=== PATIENT | female | born 1980 | race Hispanic/Latino ===

== ENCOUNTER 2017-10-12 17:37 | Emergency (ER) | payer SELFPAY ==
[2017-10-12 18:27] LABS: Bilirubin Negative (Negative); Blood, Urine Large (Negative); Clarity CLOUDY (Clear); Glucose, Urine (Dipstick) Negative (Negative); Leukocyte Large (Negative); Nitrite Negative (Negative); Protein, Urine (Dipstick) Trace mg/dL (Neg-Trace); Specific Gravity, Urine 1.015 (1.002-1.036)
[2017-10-12 18:28] LABS: Pregnancy Test - Urine (BHCG) Negative (Negative); Pregu Control Background? CLEAR/WHITE (CLR/WHITE); Pregu Control Bar Appear? YES (CONTROL BAR); Specific Gravity 1.016 (1.002-1.036)
[2017-10-12 18:39] LABS: Bacteria/HPF 1+ HPF (None Seen); Hyaline Casts/LPF 0-3 HYALINE CAST LPF (0-3 Hyaline); Pathc Cast-AUWi Flag 0.27 (0-2.49); RBC/HPF 21-50 HPF (0-3); Squamous Epithelial 0-3 HPF (0-3)
[2017-10-12 18:43] LABS: Yeast-AUWi Flag 66.6 (0-25.0)
[2017-10-12 18:53] LABS: Yeast-All Forms None Seen HPF (None Seen)
[2017-10-12] MEDS ORDERED: Phenazopyridine HCl 97.5 MG TABLET ONE (18:55)
[2017-10-12] MEDS ORDERED: Cephalexin 250 MG CAP ONE (18:55)
--- NOTE | 2017-10-12 19:19 | RAD ---
TWO VIEWS CHEST: Date: 10-12-17 Comparison: 01-29-12 History: Chest pain. FINDINGS: No pneumothorax or pleural fluid. No focal consolidation or alveolar edema. Heart and mediastinal con tours are within normal limits. Clips in the right upper quadrant suggests prior cholecystectomy. IMPRESSION: No acute findings. POS: [facility]
== END 2017-10-12 19:55 | disposition home or self-care (01) ==
LOC: ERS 17:37
DX: R07.89 Other chest pain (principal); T39.1X5A Adverse effect of 4-Aminophenol derivatives, initial encounter; N39.0 Urinary tract infection, site not specified; F41.9 Anxiety disorder, unspecified; F32.9 Major depressive disorder, single episode, unspecified
CPT/HCPCS: 71046; 81003; 81015; 81025; 93005

== ENCOUNTER 2017-12-24 12:32 | Emergency (ER) | payer MEDICAID, SELFPAY ==
[2017-12-24 13:05] LABS: #Eosinphils 0.1 thou/uL (0.0-0.7); #Lymphocytes 1.5 thou/uL (1.20-3.40); #Monocytes 0.4 thou/uL (0.11-0.59); #Neutrophils 4.5 thou/uL (1.40-6.50); %Basophils 0.6 % (0.0-1.0); %Eosinophils 1.1 % (0.0-10.0); %Lymphocytes 22.3 % (21.0-51.0); %Monocytes 6.8 % (0.0-10.0); %Neutrophils 69.2 % (42.0-75.0); Hemoglobin 12.4 g/dL (12.0-16.0); Mean Corpuscular HGB CONC 33.1 g/dL (32.0-36.0); Mean Corpuscular Hemoglobin 29.8 pg (27.0-31.0); Mean Corpuscular Volume 90.1 fl (81.0-99.0); Mean Platelet Volume 6.2 fL (7.4-10.4); Platelet Count 362 thou/uL (130-400); RBC Distribution Width 12.8 % (11.5-14.5); Red Blood Cell (RBC) Count 4.17 mill/uL (4.20-5.40); White Blood Cell (WBC) Count 6.5 thou/uL (4.8-10.8)
[2017-12-24 13:27] LABS: ALT (SGPT) 24 U/L (8-55); AST (SGOT) 25 U/L (5-34); Albumin 3.7 g/dL (3.5-5.0); Alkaline Phosphatase 60 U/L (40-150); Anion Gap 7 mmol/L (10-20); BUN (Urea Nitrogen) 6 mg/dL (7.0-18.7); Bilirubin, Total 0.6 mg/dL (0.2-1.2); Calc. Creatinine Clearance 0 mL/min (70-130); Calcium 8.7 mg/dL (7.8-10.44); Carbon Dioxide 23 mmol/L (22-29); Chloride 107 mmol/L (98-107); Estimated GFR-MDRD Greater than 90; Globulin 2.8 g/dL (2.4-3.5); Glucose 88 mg/dL (70-105); Potassium 3.6 mmol/L (3.5-5.1); Protein, Total 6.5 g/dL (6.0-8.3); Sodium 133 mmol/L (136-145)
[2017-12-24 13:39] LABS: Bilirubin Negative (Negative); Blood, Urine Trace (Negative); Clarity CLEAR (Clear); Glucose, Urine (Dipstick) Negative (Negative); Leukocyte Negative (Negative); Nitrite Negative (Negative); Protein, Urine (Dipstick) Negative (Neg-Trace); Specific Gravity, Urine 1.022 (1.002-1.036); pH, Urine 6.5 (5.0-9.0)
[2017-12-24 13:45] LABS: Bacteria/HPF None Seen HPF (None Seen); Hyaline Casts/LPF 4-6 HYALINE CAST LPF (0-3 Hyaline); Pathc Cast-AUWi Flag 1.01 (0-2.49); RBC/HPF 0-3 HPF (0-3); WBC/HPF 0-3 HPF (0-3)
--- NOTE | 2017-12-24 14:08 | ULT ---
OBSTETRIC SONOGRAM FIRST TRIMESTER TRANSABDOMINAL AND TRANSVAGINAL IMAGING: Date: 12/24/17 HISTORY: Pelvic pain. Bleeding. Early . Absent heart tones. FINDINGS: Gestational sac within the endometrial cavity contains a yolk sac and pole. Offerle-rump length c orrelates with 8 weeks/3 days gestational size. No heart motion is demonstrated upon sonography . No free fluid within the pelvis. Good color and spectral Doppler flow are associated with each ovary. IMPRESSION: Intrauterine demise. POS: [facility]
== END 2017-12-24 15:27 | disposition home or self-care (01) ==
LOC: ERS 12:32
DX: O02.1 Missed abortion (principal); F41.9 Anxiety disorder, unspecified; F32.9 Major depressive disorder, single episode, unspecified
CPT/HCPCS: 36415; 76856; 80053; 81003; 81015; 84702; 85025; 86900; 86901

== ENCOUNTER 2018-03-17 08:26 | Outpatient (CLI) | payer OTHER | END 2018-03-17 08:27 | disposition home or self-care (01) | LOC: BICULT 08:26 | PROVIDERS: ATTEND Nurse Practitioner | DX: N93.9 Abnormal uterine and vaginal bleeding, unspecified (principal) | CPT/HCPCS: 76856 ==

== ENCOUNTER 2018-05-03 21:35 | Emergency (ER) | payer OTHER ==
[2018-05-03] MEDS ORDERED: Ketorolac Tromethamine 60 MG/2 ML VIAL ONE (22:17)
[2018-05-03 22:20] LABS: Bilirubin Negative (Negative); Blood, Urine Large (Negative); Clarity CLOUDY (Clear); Glucose, Urine (Dipstick) Negative (Negative); Leukocyte Moderate (Negative); Nitrite Negative (Negative); Protein, Urine (Dipstick) 100 mg/dL (Neg-Trace); pH, Urine 6.5 (5.0-9.0)
[2018-05-03 22:22] LABS: Bacteria/HPF 4+ HPF (None Seen); Hyaline Casts/LPF 0-3 HYALINE CAST LPF (0-3 Hyaline); Pathc Cast-AUWi Flag 0.72 (0-2.49); Pregnancy Test - Urine (BHCG) Negative (Negative); Pregu Control Background? CLEAR/WHITE (CLR/WHITE); Pregu Control Bar Appear? YES (CONTROL BAR); RBC/HPF GREATER THAN 50-TNTC HPF (0-3); Squamous Epithelial 0-3 HPF (0-3)
[2018-05-03] MEDS ORDERED: Phenazopyridine HCl 97.5 MG TABLET PO SCH (22:30)
== END 2018-05-03 23:26 | disposition home or self-care (01) ==
LOC: ERS 21:35
DX: N39.0 Urinary tract infection, site not specified (principal); F41.9 Anxiety disorder, unspecified; F32.9 Major depressive disorder, single episode, unspecified
CPT/HCPCS: 81003; 81015; 81025; 87077; 87086; 87186; 96372; J1885

== ENCOUNTER 2018-05-31 16:32 | Emergency (ER) | payer OTHER | END 2018-05-31 16:50 | disposition home or self-care (01) | LOC: ERS 16:32 | DX: K02.9 Dental caries, unspecified (principal) | CPT/HCPCS: 99282 ==

== ENCOUNTER 2018-11-03 16:41 | Emergency (ER) | payer OTHER ==
[2018-11-03 17:08] LABS: #Eosinphils 0.1 thou/uL (0.0-0.7); #Lymphocytes 1.7 thou/uL (1.20-3.40); #Monocytes 0.6 thou/uL (0.11-0.59); #Neutrophils 5.4 thou/uL (1.40-6.50); %Basophils 0.5 % (0.0-1.0); %Eosinophils 1.2 % (0.0-10.0); %Lymphocytes 21.2 % (21.0-51.0); %Monocytes 7.9 % (0.0-10.0); %Neutrophils 69.3 % (42.0-75.0); Hemoglobin 10.3 g/dL (12.0-16.0); Mean Corpuscular HGB CONC 32.2 g/dL (32.0-36.0); Mean Corpuscular Hemoglobin 27.8 pg (27.0-31.0); Mean Corpuscular Volume 86.4 fL (78.0-98.0); Mean Platelet Volume 6.4 fL (7.4-10.4); Platelet Count 375 thou/uL (130-400); RBC Distribution Width 13.6 % (11.5-14.5); Red Blood Cell (RBC) Count 3.72 mill/uL (4.20-5.40); White Blood Cell (WBC) Count 7.8 thou/uL (4.8-10.8)
[2018-11-03 17:25] LABS: ALT (SGPT) 9 U/L (8-55); AST (SGOT) 13 U/L (5-34); Albumin 3.6 g/dL (3.5-5.0); Alkaline Phosphatase 61 U/L (40-150); Anion Gap 11 mmol/L (10-20); BUN (Urea Nitrogen) 8 mg/dL (7.0-18.7); Bilirubin, Total Less than 0.2 mg/dL (0.2-1.2); Calc. Creatinine Clearance 0 mL/min (70-130); Calcium 8.8 mg/dL (7.8-10.44); Carbon Dioxide 24 mmol/L (22-29); Chloride 105 mmol/L (98-107); Estimated GFR-MDRD Greater than 90; Globulin 3.2 g/dL (2.4-3.5); Glucose 84 mg/dL (70-105); Lipase 20 U/L (8-78); Potassium 3.8 mmol/L (3.5-5.1); Protein, Total 6.8 g/dL (6.0-8.3); Sodium 136 mmol/L (136-145)
[2018-11-03 18:03] LABS: Bilirubin Negative (Negative); Blood, Urine Negative (Negative); Clarity CLEAR (Clear); Glucose, Urine (Dipstick) Negative (Negative); Leukocyte Negative (Negative); Nitrite Negative (Negative); Protein, Urine (Dipstick) Negative (Neg-Trace); Specific Gravity, Urine 1.007 (1.002-1.036); Urobilinogen 0.2 mg/dL (0.2-1.0); pH, Urine 6.5 (5.0-9.0)
--- NOTE | 2018-11-03 20:42 | ULT ---
OB ULTRASOUND: 11/03/2018 HISTORY: Pelvic pressure sensation. History of prior miscarriage. FINDINGS: Multiple transabdominal images of the pelvis are obtained. There is evidence of a single intrauterin e gestation, in variable presentation. Cardiac Doppler demonstrates heart tones with a h eart rate of 163 beats per minute. There is a normal amount of amniotic fluid. The placenta is loca jean anteriorly. Cervical length is difficult to accurately measure but, on transabdominal imaging, m easures approximately 3.7 cm. There is small, hypoechoic, slightly heterogeneous area seen adjacent to the distal portion of the ge stational sac, measuring 1.9 cm x 1.2 cm x 1.3 cm. Color-flow evaluation does not demonstrate flow i n this region. This could be related to sequela of a subchorionic hemorrhage. MEASUREMENTS: Biparietal diameter: 1.99 cm (13 weeks 1 day). Head circumference: 8.11 cm (13 weeks 3 days). Abdominal circumference: 6.58 cm (13 weeks 2 days). Femur length: 0.71 cm (12 weeks 1 day). The estimated gestational age by ultrasound is 13 weeks with an CHASITY of 05/11/2019. The gestational a ge by the last menstrual period is 12 weeks. IMPRESSION: 1. Heterogeneous and slightly cystic appearing area within the lower uterine segment, adjacent to th e gestational sac, which could be sequela of subchorionic hemorrhage. This measures 1.[address] dimensions. Continued followup is recommended. 2. Single intrauterine gestation, in variable presentation, with heart tones documented. 3. Estimated gestational age by ultrasound is 13 weeks with an estimated date of delivery of 019. POS: [facility]
== END 2018-11-03 19:32 | disposition home or self-care (01) ==
LOC: ERS 16:41
DX: O99.89 Other specified diseases and conditions complicating pregnancy, childbirth and the puerperium (principal); R10.11 Right upper quadrant pain; R10.30 Lower abdominal pain, unspecified; O99.341 Other mental disorders complicating pregnancy, first trimester; F41.9 Anxiety disorder, unspecified; F32.9 Major depressive disorder, single episode, unspecified; Z3A.12 12 weeks gestation of pregnancy
CPT/HCPCS: 36415; 76805; 80053; 81003; 83690; 84702; 85025; 86900; 86901; 99284

== ENCOUNTER 2019-01-06 12:52 | Outpatient (CLI) | payer MEDICAID ==
--- NOTE | 2019-01-06 13:53 | ULT ---
EXAM: OB ultrasound COMPARISON: None HISTORY: female. Evaluate size, dates, and anatomy. TECHNIQUE: Multiplanar grayscale and color Doppler images were obtained in a transabdominal ult rasound. FINDINGS: There is a single live intrauterine with heart rate of 153 bpm. A survey wa s performed which is unremarkable. The head, intracranial structures, heart, stomach, kidneys, umbilical cord, umbilical cord insertion, spine, face, and extremities were evaluated and were unrema rkable. Estimated weight is 451 g. Average age of the fetus based off today's examination is 21 weeks 5 days. BPD 5.14 cm -- 21 weeks 4 days HC 18.93 cm -- 21 weeks 2 days AC 16.60 cm -- 21 weeks 4 days FL 3.80 cm -- 22 weeks 1 day The placenta is anterior in location without focal abnormality. MINE is 12.9 cm which is normal. Ther e is no evidence of placenta previa. IMPRESSION: Single live intrauterine with estimated age of 21 weeks 5 days.
== END 2019-01-06 12:53 | disposition home or self-care (01) ==
LOC: ULT 12:52
PROVIDERS: ATTEND Nurse Practitioner
DX: O09.92 Supervision of high risk pregnancy, unspecified, second trimester (principal); Z3A.21 21 weeks gestation of pregnancy
CPT/HCPCS: 76805

== ENCOUNTER 2019-05-10 05:30 | Inpatient (IN) | payer OTHER ==
[2019-05-10 06:56] VITALS: BMI 34.2
[2019-05-10] MEDS ORDERED: hydrALAZINE 20 MG/ML VIAL SLOW IVP PRN ×2 (06:57→18:36)
[2019-05-10] MEDS ORDERED: Methylergonovine 0.2 MG/ML VIAL IM PRN (06:57)
[2019-05-10] MEDS ORDERED: Ibuprofen 800 MG TAB PO PRN (06:57)
[2019-05-10] MEDS ORDERED: Carboprost 250 MCG/ML AMP IM PRN (06:57)
[2019-05-10] MEDS ORDERED: HYDROcodone/Acetaminophen 5/325 mg Tablet PO PRN ×3 (06:57→18:36)
[2019-05-10] MEDS ORDERED: Promethazine HCl 25 MG/ML VIAL IM PRN ×2 (06:57→18:36)
[2019-05-10] MEDS ORDERED: Ondansetron PF 4 MG/2 ML Vial IVP PRN ×2 (06:57→18:36)
[2019-05-10] MEDS ORDERED: Diphenoxylate HCl/Atropine Tablet PO PRN (06:57)
[2019-05-10] MEDS ORDERED: Misoprostol 200 MCG TAB PR PRN (06:57)
[2019-05-10] MEDS ORDERED: Lidocaine 1% (PF) 30 ML VIAL SC PRN (06:57)
[2019-05-10] MEDS ORDERED: NS w/ Oxytocin 10 units 500 ML IV SCH ×2 (07:00)
[2019-05-10] MEDS: Lactated Ringer's 1,000 ML IV SCH ×2 (07:15→13:42)
[2019-05-10] MEDS ORDERED: NS w/ Oxytocin 10 units 500 ML ONE (07:21)
[2019-05-10 08:06] LABS: Hemoglobin 9.7 g/dL (12.0-16.0); Mean Corpuscular Hemoglobin 25.5 pg (27.0-31.0); Mean Corpuscular Volume 79.8 fL (78.0-98.0); Mean Platelet Volume 7.6 fL (7.4-10.4); Platelet Count 340 thou/uL (130-400); RBC Distribution Width 15.8 % (11.5-14.5); White Blood Cell (WBC) Count 7.5 thou/uL (4.8-10.8)
[2019-05-10 08:44] LABS: HBSAg Index 0.13 S/CO (0-0.99); Hep B Surf Ag Non-Reactive S/CO (NonReactive); Syphilis Antibody Nonreactive (Nonreactive); Syphilis Antibody Index 0.04 S/CO (<1.00 Non-Reactive)
[2019-05-10] MEDS: Butorphanol Tartrate 1 MG/ML VIAL SLOW IVP PRN ×3 (11:38→14:40)
[2019-05-10] MEDS ORDERED: Misoprostol 200 MCG TAB ONE (14:48)
[2019-05-10] MEDS: NS / Oxytocin 40 units/1000ml 1,000 ML IV PRN ×2 (15:10→16:44)
[2019-05-10] MEDS ORDERED: Lanolin Ointment 7 GM TUBE TOP PRN (18:36)
[2019-05-10] MEDS ORDERED: Milk Of Magnesia 30 ML UDCUP PO PRN (18:36)
[2019-05-10] MEDS ORDERED: Bisacodyl 10 MG SUPP PR PRN (18:36)
[2019-05-10] MEDS ORDERED: Preparation H Ointment 28 GM TUBE PR PRN (18:36)
[2019-05-10] MEDS ORDERED: NS / Oxytocin 40 units/1000ml 1,000 ML IV SCH (18:36)
[2019-05-10] MEDS ORDERED: diphenhydrAMINE 25 MG CAP PO PRN (18:36)
[2019-05-10] MEDS ORDERED: Adacel (T-DAP) 0.5 ML SYRINGE IM ONE (18:36)
[2019-05-10] MEDS: Ferrous Sulfate 325 MG TAB PO SCH (21:37)
[2019-05-10] MEDS: Ibuprofen 800 MG TAB PO SCH (21:37)
[2019-05-10] MEDS: Docusate Calcium (SURFAK) 240 MG CAP PO SCH (21:38)
[2019-05-11] MEDS: Ibuprofen 800 MG TAB PO SCH ×3 (05:07→16:28)
[2019-05-11 06:27] LABS: Hemoglobin 8.9 g/dL (12.0-16.0); Mean Corpuscular HGB CONC 31.3 g/dL (32.0-36.0); Mean Corpuscular Hemoglobin 25.8 pg (27.0-31.0); Mean Corpuscular Volume 82.4 fL (78.0-98.0); Mean Platelet Volume 7.4 fL (7.4-10.4); Platelet Count 310 thou/uL (130-400); RBC Distribution Width 15.8 % (11.5-14.5); Red Blood Cell (RBC) Count 3.46 mill/uL (4.20-5.40); White Blood Cell (WBC) Count 8.8 thou/uL (4.8-10.8)
[2019-05-11] MEDS ORDERED: Sodium Chloride 0.9% 10 ML ONE (06:48)
[2019-05-11] MEDS: Prenatal Vitamin 1 TAB PO SCH (08:33)
[2019-05-11] MEDS: Docusate Calcium (SURFAK) 240 MG CAP PO SCH ×2 (08:34→21:06)
[2019-05-11] MEDS: Ferrous Sulfate 325 MG TAB PO SCH ×2 (08:34→17:49)
[2019-05-11] MEDS: Meclizine HCl 25 MG TAB PO SCH ×3 (08:36→21:06)
[2019-05-12] MEDS: Ibuprofen 800 MG TAB PO SCH ×2 (00:18→08:32)
[2019-05-12] MEDS: Meclizine HCl 25 MG TAB PO SCH ×2 (03:35→09:23)
[2019-05-12 03:44] VITALS: BP 99/58
[2019-05-12 08:14] VITALS: TEMP 97.8
[2019-05-12] MEDS: Docusate Calcium (SURFAK) 240 MG CAP PO SCH (09:22)
[2019-05-12] MEDS: Ferrous Sulfate 325 MG TAB PO SCH (09:23)
[2019-05-12] MEDS: Prenatal Vitamin 1 TAB PO SCH (09:27)
== END 2019-05-12 09:57 | disposition home or self-care (01) | DRG 807 ==
LOC: L&D 06:15 → 3SW 18:22
PROVIDERS: ADMIT Family Medicine; ATTEND Family Medicine
PROC: 10E0XZZ Delivery of Products of Conception, External Approach (ICD-10-PCS; principal; 2019-05-11)
PROC: 10907ZC Drainage of Amniotic Fluid, Therapeutic from Products of Conception, Via Natural or Artificial Opening (ICD-10-PCS; 2019-05-11)
PROC: 3E0P7VZ Introduction of Hormone into Female Reproductive, Via Natural or Artificial Opening (ICD-10-PCS; 2019-05-11)
PROC: 3E033VJ Introduction of Other Hormone into Peripheral Vein, Percutaneous Approach (ICD-10-PCS; 2019-05-11)
DX: O99.344 Other mental disorders complicating childbirth (principal); Z37.0 Single live birth; F32.9 Major depressive disorder, single episode, unspecified; Z3A.39 39 weeks gestation of pregnancy; Z90.49 Acquired absence of other specified parts of digestive tract; Z79.899 Other long term (current) drug therapy
CPT/HCPCS: 36415; 36416; 85027; 86780; 86850; 86900; 86901; 87340; J0595; J2001; J2405; J2590; J8597

== ENCOUNTER 2019-11-16 12:42 | Emergency (ER) | payer MEDICAID, OTHER ==
[2019-11-16 13:18] LABS: Bilirubin Negative (Negative); Blood, Urine Negative (Negative); Clarity Clear (Clear); Glucose, Urine (Dipstick) Normal (Negative); Leukocyte Negative Leu/uL (Negative); Nitrite Negative (Negative); Protein, Urine (Dipstick) Negative (Neg-Trace); Urobilinogen Normal mg/dL (Less than 2)
[2019-11-16 13:41] LABS: #Basophils 0.1 thou/uL (0.0-0.2); #Eosinphils 0.1 thou/uL (0.0-0.7); #Lymphocytes 1.3 thou/uL (1.20-3.40); #Monocytes 0.6 thou/uL (0.11-0.59); #Neutrophils 9.1 thou/uL (1.40-6.50); %Basophils 0.6 % (0.0-1.0); %Eosinophils 0.8 % (0.0-10.0); %Lymphocytes 11.9 % (21.0-51.0); %Monocytes 5.4 % (0.0-10.0); %Neutrophils 81.2 % (42.0-75.0); Hemoglobin 11.7 g/dL (12.0-16.0); Mean Corpuscular HGB CONC 32.7 g/dL (32.0-36.0); Mean Corpuscular Hemoglobin 28.4 pg (27.0-31.0); Mean Corpuscular Volume 86.9 fL (78.0-98.0); Mean Platelet Volume 7.5 fL (7.4-10.4); Platelet Count 360 thou/uL (130-400); RBC Distribution Width 13.7 % (11.5-14.5); White Blood Cell (WBC) Count 11.2 thou/uL (4.8-10.8)
[2019-11-16 13:43] LABS: Pregnancy Test - Urine (BHCG) Negative (Negative); Specific Gravity 1.009 (1.002-1.036)
[2019-11-16 13:44] LABS: Pregu Control Background? CLEAR/WHITE (CLR/WHITE); Pregu Control Bar Appear? YES (CONTROL BAR)
[2019-11-16 13:57] LABS: ALT (SGPT) 12 U/L (8-55); AST (SGOT) 16 U/L (5-34); Albumin 4.2 g/dL (3.5-5.0); Alkaline Phosphatase 86 U/L (40-110); Anion Gap 10 mmol/L (10-20); BUN (Urea Nitrogen) 7 mg/dL (7.0-18.7); Bilirubin, Total 0.9 mg/dL (0.2-1.2); Calc. Creatinine Clearance 0 mL/min (70-130); Calcium 8.9 mg/dL (7.8-10.44); Carbon Dioxide 26 mmol/L (22-29); Chloride 104 mmol/L (98-107); Estimated GFR-MDRD Greater than 90; Globulin 3.3 g/dL (2.4-3.5); Glucose 92 mg/dL (70-105); Lipase 16 U/L (8-78); Potassium 3.7 mmol/L (3.5-5.1); Protein, Total 7.5 g/dL (6.0-8.3); Sodium 136 mmol/L (136-145)
[2019-11-16] MEDS ORDERED: Iopamidol 370 76% 100 ML VIAL ONE (13:57)
--- NOTE | 2019-11-16 14:19 | CT ---
CT abdomen and pelvis with IV contrast HISTORY: Abdominal pain. FINDINGS: Minimal atelectasis at the lung bases. Gallbladder is surgically absent. Within a nondilate d calyx at the midportion of the left kidney is a 0.2 cm calculus. No free air or free fluid. No evidence of bowel obstruction. Diverticula arise from the colon without adjacent inflammation. Dominant follicle of the right ovary is 2.7 cm. Mild degenerative changes of the hips and lumbar spine. IMPRESSION : Tiny nonobstructing left renal calculus. Diverticulosis. No evidence of diverticulitis.
== END 2019-11-16 15:15 | disposition home or self-care (01) ==
LOC: ERS 12:42
DX: N83.201 Unspecified ovarian cyst, right side (principal); K42.9 Umbilical hernia without obstruction or gangrene; K43.9 Ventral hernia without obstruction or gangrene; F32.9 Major depressive disorder, single episode, unspecified; F41.9 Anxiety disorder, unspecified
CPT/HCPCS: 74177; 80053; 81003; 81025; 83690; 85025; 96360; 96361; Q9967

== ENCOUNTER 2019-11-23 06:26 | Emergency (ER) | payer MEDICAID, SELFPAY | END 2019-11-23 06:44 | disposition home or self-care (01) | LOC: ERS 06:26 | DX: J02.9 Acute pharyngitis, unspecified (principal); F41.9 Anxiety disorder, unspecified; F32.9 Major depressive disorder, single episode, unspecified | CPT/HCPCS: 99283 ==

== ENCOUNTER 2020-12-31 23:51 | Emergency (ER) | payer MEDICAID ==
[2021-01-01] MEDS ORDERED: Acetaminophen 500 MG TAB ONE (00:37)
[2021-01-01] MEDS ORDERED: Ibuprofen 200 MG TAB ONE (00:37)
[2021-01-01 05:34] LABS: SARS-CoV-2 PCR by NAA Not Detected (NotDetected)
== END 2021-01-01 00:49 | disposition home or self-care (01) ==
LOC: ERS 23:51
DX: R09.81 Nasal congestion (principal); Z20.822 Contact with and (suspected) exposure to COVID-19
CPT/HCPCS: 87635; 99283; U0003; U0005

== ENCOUNTER 2021-03-15 02:57 | Emergency (ER) | payer MEDICAID ==
[2021-03-15 04:46] LABS: Bacteria/HPF 1+ HPF (None Seen); Bilirubin Negative (Negative); Blood, Urine Negative (Negative); Clarity Clear (Clear); Glucose, Urine (Dipstick) Normal (Negative); Ketone, Urine Negative (Negative); Leukocyte 250 Leu/uL (Negative); Nitrite Negative (Negative); Pregnancy Test - Urine (BHCG) Negative (Negative); Pregu Control Background? CLEAR/WHITE (CLR/WHITE); Pregu Control Bar Appear? YES (CONTROL BAR); Protein, Urine (Dipstick) Negative (Neg-Trace); Specific Gravity 1.018 (1.002-1.036); Specific Gravity, Urine 1.018 (1.002-1.036); Squamous Epithelial 0-3 HPF (0-3); Urobilinogen Normal mg/dL (Less than 2); WBC/HPF 21-50 HPF (0-3); pH, Urine 6.5 (5.0-9.0)
[2021-03-15] MEDS ORDERED: cefTRIAXone\\ROCEPHIN 500 MG VIAL ONE (04:55)
[2021-03-15] MEDS ORDERED: Lidocaine 1% PF 5 ML VIAL ONE (04:56)
[2021-03-17 18:07] LABS: Chlamydia by PCR DETECTED (NotDetected); GC by PCR Not Detected (NotDetected)
== END 2021-03-15 05:13 | disposition home or self-care (01) ==
LOC: ERS 02:57
DX: N89.8 Other specified noninflammatory disorders of vagina (principal); N39.0 Urinary tract infection, site not specified
CPT/HCPCS: 81003; 81015; 81025; 87077; 87086; 87186; 87480; 87491; 87510; 87591; 87660; 96372; 99283; J0696

== ENCOUNTER 2021-03-31 13:21 | Emergency (ER) | payer MEDICAID ==
[2021-03-31 21:03] LABS: SARS-CoV-2 PCR by NAA DETECTED (NotDetected)
== END 2021-03-31 16:05 | disposition home or self-care (01) ==
LOC: ERS 13:21
DX: R09.81 Nasal congestion (principal); R51.9 Headache, unspecified; R68.83 Chills (without fever); Z20.822 Contact with and (suspected) exposure to COVID-19
CPT/HCPCS: 99283; U0003; U0005

== ENCOUNTER 2021-07-26 09:42 | Emergency (ER) | payer MEDICAID, SELFPAY ==
[2021-07-26 10:19] LABS: Bacteria/HPF 1+ HPF (None Seen); Bilirubin Negative (Negative); Blood, Urine 2+ (Negative); Clarity Turbid (Clear); Glucose, Urine (Dipstick) Normal (Negative); Ketone, Urine Negative (Negative); Leukocyte 500 Leu/uL (Negative); Nitrite Negative (Negative); Protein, Urine (Dipstick) 10 mg/dL (Neg-Trace); Specific Gravity, Urine 1.011 (1.002-1.036); Squamous Epithelial 0-3 HPF (0-3); Urobilinogen Normal mg/dL (Less than 2); WBC/HPF Greater than 50 HPF (0-3)
[2021-07-26 10:21] LABS: Pregnancy Test - Urine (BHCG) Negative (Negative); Pregu Control Background? CLEAR/WHITE (CLR/WHITE); Pregu Control Bar Appear? YES (CONTROL BAR); Specific Gravity 1.011 (1.002-1.036)
== END 2021-07-26 11:05 | disposition home or self-care (01) ==
LOC: ERS 09:42
DX: N39.0 Urinary tract infection, site not specified (principal)
CPT/HCPCS: 81003; 81015; 81025; 87077; 87086; 87186; 99283

== ENCOUNTER 2021-08-25 10:10 | Emergency (ER) | payer SELFPAY ==
[2021-08-25 15:37] LABS: SARS-CoV-2 PCR by NAA DETECTED (NotDetected)
== END 2021-08-25 12:10 | disposition home or self-care (01) ==
LOC: ERS 10:10
DX: U07.1 COVID-19 (principal)
CPT/HCPCS: 99283; U0003; U0005

== ENCOUNTER 2022-02-22 23:54 | Emergency (ER) | payer MEDICAID | END 2022-02-23 01:39 | disposition left against medical advice (07) | LOC: ERS 23:54 | DX: Z53.21 Procedure and treatment not carried out due to patient leaving prior to being seen by health care provider (principal) ==

== ENCOUNTER 2022-02-25 22:27 | Emergency (ER) | payer MEDICAID, SELFPAY ==
[2022-02-26 00:46] LABS: #Basophils 0.1 thou/uL (0.0-0.2); #Eosinphils 0.1 thou/uL (0.0-0.7); #Lymphocytes 2.2 thou/uL (1.20-3.40); #Monocytes 0.8 thou/uL (0.11-0.59); #Neutrophils 5.6 thou/uL (1.40-6.50); %Basophils 0.7 % (0.0-1.0); %Eosinophils 1.4 % (0.0-10.0); %Lymphocytes 25.2 % (21.0-51.0); %Monocytes 8.6 % (0.0-10.0); %Neutrophils 64.2 % (42.0-75.0); Hemoglobin 11.6 g/dL (12.0-16.0); Mean Corpuscular HGB CONC 33.1 g/dL (32.0-36.0); Mean Corpuscular Hemoglobin 30.3 pg (27.0-31.0); Mean Corpuscular Volume 91.5 fL (78.0-98.0); Mean Platelet Volume 6.6 fL (7.4-10.4); Platelet Count 282 thou/uL (130-400); RBC Distribution Width 13.1 % (11.5-14.5); Red Blood Cell (RBC) Count 3.82 mill/uL (4.20-5.40); White Blood Cell (WBC) Count 8.7 thou/uL (4.8-10.8)
[2022-02-26 01:03] LABS: Bacteria/HPF None Seen HPF (None Seen); Bilirubin Negative (Negative); Blood, Urine Negative (Negative); Clarity Clear (Clear); Glucose, Urine (Dipstick) Normal (Negative); Ketone, Urine Negative (Negative); Leukocyte 75 Leu/uL (Negative); Nitrite Negative (Negative); Protein, Urine (Dipstick) Negative (Neg-Trace); RBC/HPF 0-3 HPF (0-3); Specific Gravity, Urine 1.012 (1.002-1.036); Squamous Epithelial 0-3 HPF (0-3); Urobilinogen Normal mg/dL (Less than 2)
[2022-02-26 01:10] LABS: ALT (SGPT) 17 U/L (8-55); AST (SGOT) 16 U/L (5-34); Albumin 3.9 g/dL (3.5-5.0); Alkaline Phosphatase 70 U/L (40-110); Anion Gap 13 mmol/L (10-20); BUN (Urea Nitrogen) 10 mg/dL (7.0-18.7); Bilirubin, Total 0.2 mg/dL (0.2-1.2); Calc. Creatinine Clearance 0 mL/min (70-130); Calcium 9.2 mg/dL (7.8-10.44); Carbon Dioxide 24 mmol/L (22-29); Chloride 103 mmol/L (98-107); Estimated GFR 114; Globulin 2.9 g/dL (2.4-3.5); Glucose 99 mg/dL (70-105); Potassium 3.6 mmol/L (3.5-5.1); Protein, Total 6.8 g/dL (6.0-8.3); Sodium 136 mmol/L (136-145)
[2022-02-26] MEDS ORDERED: Ondansetron PF 4 MG/2 ML Vial ONE (01:44)
== END 2022-02-26 03:33 | disposition home or self-care (01) ==
LOC: ERS 22:27
DX: O99.411 Diseases of the circulatory system complicating pregnancy, first trimester (principal); I95.1 Orthostatic hypotension; O99.281 Endocrine, nutritional and metabolic diseases complicating pregnancy, first trimester; E86.0 Dehydration; O09.521 Supervision of elderly multigravida, first trimester; Z3A.01 Less than 8 weeks gestation of pregnancy
CPT/HCPCS: 36415; 76856; 80053; 81003; 81015; 84702; 85025; 87077; 87086; 87186; 93005; 93976; 96361; 96374; J2405

== ENCOUNTER 2022-03-03 19:06 | Emergency (ER) | payer SELFPAY ==
[2022-03-03] MEDS ORDERED: Acetaminophen 500 MG TAB ONE (19:43)
[2022-03-03 20:33] LABS: SARS-CoV-2 NAA Rapid Test Not Detected (NotDetected)
== END 2022-03-03 20:46 | disposition home or self-care (01) ==
LOC: ERS 19:06
DX: O21.9 Vomiting of pregnancy, unspecified (principal); O99.511 Diseases of the respiratory system complicating pregnancy, first trimester; J06.9 Acute upper respiratory infection, unspecified; O99.611 Diseases of the digestive system complicating pregnancy, first trimester; K59.00 Constipation, unspecified; Z20.822 Contact with and (suspected) exposure to COVID-19; Z3A.12 12 weeks gestation of pregnancy
CPT/HCPCS: 99284; U0002

== ENCOUNTER 2022-03-11 19:18 | Emergency (ER) | payer SELFPAY | END 2022-03-11 19:49 | disposition home or self-care (01) | LOC: ERS 19:18 | DX: O21.9 Vomiting of pregnancy, unspecified (principal); Z3A.09 9 weeks gestation of pregnancy ==

== ENCOUNTER 2022-03-18 17:12 | Emergency (ER) | payer MEDICAID ==
[2022-03-18] MEDS ORDERED: Metoclopramide HCl 10 MG/2 ML VIAL ONE (18:47)
[2022-03-18] MEDS ORDERED: diphenhydrAMINE 50 MG/ML VIAL ONE (18:47)
== END 2022-03-18 20:03 | disposition home or self-care (01) ==
LOC: ERS 17:12
DX: O99.351 Diseases of the nervous system complicating pregnancy, first trimester (principal); G43.909 Migraine, unspecified, not intractable, without status migrainosus; Z3A.10 10 weeks gestation of pregnancy
CPT/HCPCS: 96374; 96375; J1200; J2765

== ENCOUNTER 2022-06-20 02:00 | Emergency (ER) | payer MEDICAID | END 2022-06-20 03:08 | disposition home or self-care (01) | LOC: ERS 02:00 | DX: R05.9 Cough, unspecified (principal) | CPT/HCPCS: 99283 ==

== ENCOUNTER 2023-04-15 01:37 | Emergency (ER) | payer OTHER ==
[2023-04-15 04:20] LABS: SARS-CoV-2 NAA Rapid Test DETECTED (NotDetected)
== END 2023-04-15 04:25 | disposition home or self-care (01) ==
LOC: ERS 01:37
DX: U07.1 COVID-19 (principal)
CPT/HCPCS: 99284

== ENCOUNTER 2023-09-18 01:40 | Emergency (ER) | payer OTHER, SELFPAY ==
[2023-09-18] MEDS ORDERED: Ketorolac Tromethamine 30 MG (1 mL) VIAL ONE (02:25)
[2023-09-18] MEDS ORDERED: Metoclopramide HCl 10 MG (2 mL) VIAL ONE (02:25)
[2023-09-18] MEDS ORDERED: Acetaminophen 500 MG TAB ONE (02:25)
[2023-09-18 02:29] LABS: #Eosinphils 0.1 thou/uL (0.0-0.7); #Monocytes 0.5 thou/uL (0.11-0.59); #Neutrophils 2.9 thou/uL (1.40-6.50); %Basophils 0.5 % (0.0-1.0); %Eosinophils 1.5 % (0.0-10.0); %Lymphocytes 38.6 % (21.0-51.0); %Monocytes 9.3 % (0.0-10.0); %Neutrophils 49.9 % (42.0-75.0); Hematocrit 34.7 % (36.0-47.0); Mean Corpuscular HGB CONC 31.7 g/dL (32.0-36.0); Mean Corpuscular Hemoglobin 27.8 pg (27.0-31.0); Mean Corpuscular Volume 87.6 fl (78.0-98.0); Mean Platelet Volume 8.9 fL (7.4-10.4); Platelet Count 356 10x3/uL (130-400); RBC Distribution Width 13.5 % (11.5-14.5); Red Blood Cell (RBC) Count 3.96 mill/uL (4.20-5.40); White Blood Cell (WBC) Count 5.8 10x3/uL (4.8-10.8)
[2023-09-18 02:50] LABS: Pregnancy Test - Urine (BHCG) Negative (Negative); Pregu Control Background? CLEAR/WHITE (CLR/WHITE); Pregu Control Bar Appear? YES (CONTROL BAR)
[2023-09-18 02:51] LABS: Bacteria/HPF None Seen HPF (None Seen); Bilirubin Negative (Negative); Blood, Urine 2+ (Negative); CAUTI Indications for Culture Pelvic or flank pain; Clarity Clear (Clear); Glucose, Urine (Dipstick) Normal (Negative); Ketone, Urine Negative (Negative); Leukocyte Negative Leu/uL (Negative); Nitrite Negative (Negative); Protein, Urine (Dipstick) Negative (Neg-Trace); RBC/HPF 0-3 HPF (0-3); Specific Gravity, Urine 1.025 (1.002-1.036); Squamous Epithelial 0-3 HPF (0-3); Urobilinogen Normal mg/dL (Less than 2); WBC/HPF 0-3 HPF (0-3); pH, Urine 5.5 (5.0-9.0)
[2023-09-18 02:52] LABS: ALT (SGPT) 18 U/L (8-55); AST (SGOT) 18 U/L (5-34); Albumin 4.1 g/dL (3.5-5.0); Alkaline Phosphatase 81 U/L (40-110); Anion Gap 11 mmol/L (10-20); BUN (Urea Nitrogen) 15 mg/dL (7.0-18.7); Bilirubin, Total 0.3 mg/dL (0.2-1.2); Calc. Creatinine Clearance 0 mL/min (70-130); Calcium 9.5 mg/dL (7.8-10.44); Carbon Dioxide 27 mmol/L (22-29); Chloride 104 mmol/L (98-107); Estimated GFR 113; Globulin 3.6 g/dL (2.4-3.5); Glucose 96 mg/dL (70-105); Potassium 3.8 mmol/L (3.5-5.1); Protein, Total 7.7 g/dL (6.0-8.3); Sodium 138 mmol/L (136-145)
[2023-09-18 02:53] LABS: Urine Culture Reflex No No
[2023-09-18 02:54] LABS: Specific Gravity 1.025 (1.002-1.036)
[2023-09-18 02:55] LABS: Troponin I Less than 0.010 ng/mL (< 0.028)
[2023-09-18 05:03] LABS: SARS-CoV-2 NAA Rapid Test Not Detected (NotDetected)
== END 2023-09-18 05:00 | disposition home or self-care (01) ==
LOC: ERS 01:40
DX: B34.9 Viral infection, unspecified (principal); E86.0 Dehydration; R00.2 Palpitations
CPT/HCPCS: 71045; 80053; 81001; 81025; 84484; 85025; 93005; 96361; 96374; 96375; J1885; J2765

== ENCOUNTER 2024-02-03 16:20 | Emergency (ER) | payer SELFPAY ==
[2024-02-03] MEDS ORDERED: Ketorolac Tromethamine 30 MG (1 mL) VIAL ONE (17:34)
== END 2024-02-03 17:40 | disposition home or self-care (01) ==
LOC: ERS 16:20
DX: J32.1 Chronic frontal sinusitis (principal); J32.0 Chronic maxillary sinusitis; B96.89 Other specified bacterial agents as the cause of diseases classified elsewhere
CPT/HCPCS: 96372; 99282; J1885

== ENCOUNTER 2024-06-09 00:03 | Emergency (ER) | payer BC, SELFPAY ==
[2024-06-09 00:44] LABS: #Basophils 0.03 10x3/uL (0.0-0.2); %Basophils 0.4 % (0.0-1.0); %Eosinophils 0.8 % (0.0-10.0); %Lymphocytes 30.7 % (21.0-51.0); %Monocytes 8.1 % (0.0-10.0); %Neutrophils 59.9 % (42.0-75.0); Hematocrit 35.9 % (36.0-47.0); Hemoglobin 11.3 g/dL (12.0-16.0); Mean Corpuscular HGB CONC 31.5 g/dL (32.0-36.0); Mean Corpuscular Hemoglobin 27.4 pg (27.0-31.0); Mean Corpuscular Volume 87.1 fL (78.0-98.0); Mean Platelet Volume 8.7 fL (7.4-10.4); Platelet Count 323 10x3/uL (130-400); RBC Distribution Width 13.2 % (11.5-14.5); Red Blood Cell (RBC) Count 4.12 mill/uL (4.20-5.40)
[2024-06-09 01:08] LABS: Bacteria/HPF None Seen HPF (None Seen); Bilirubin Negative (Negative); Blood, Urine Negative (Negative); CAUTI Indications for Culture Dysuria,urgency,freq; Clarity Clear (Clear); Glucose, Urine (Dipstick) Normal (Negative); Ketone, Urine Negative (Negative); Leukocyte Negative Leu/uL (Negative); Nitrite Negative (Negative); Protein, Urine (Dipstick) Negative (Neg-Trace); RBC/HPF 0-3 HPF (0-3); Specific Gravity, Urine 1.003 (1.002-1.036); Squamous Epithelial 0-3 HPF (0-3); Urobilinogen Normal mg/dL (Less than 2); WBC/HPF 0-3 HPF (0-3); pH, Urine 6.5 (5.0-9.0)
[2024-06-09 01:10] LABS: Urine Culture Reflex No No
== END 2024-06-09 02:42 | disposition home or self-care (01) ==
LOC: ERS 00:03
DX: O20.0 Threatened abortion (principal); Z3A.01 Less than 8 weeks gestation of pregnancy
CPT/HCPCS: 36415; 76856; 81001; 84702; 85025